=== PATIENT | female | born 1960 | race Caucasian/White ===

== ENCOUNTER 2017-03-24 23:02 | Inpatient (IN) | payer BC, MEDICAID ==
--- NOTE | 2017-03-24 23:29 | ED PDOC ---
HPI: Hypertension/Hypotension Time Seen by Provider: 03/24/17 23:16 Chief Complaint (Nursing): Dizziness/Lightheaded History Per: Patient Onset/Duration Of Symptoms: Days (1) Associated Symptoms: Headache Severity: Moderate Pain Scale Rating Of: 1 Additional Complaint(s): Checked BP at home due to headache and sensation of pressure in head since earlier tonight. Found BP to be elevated 176/106. Denies chest pain or palpitations Past Medical History Vital Signs: Last Vital Signs Temp 98.4 F 03/24/17 23:19 Pulse 100 H 03/24/17 23:19 Resp 18 03/24/17 23:19 BP 163/105 H 03/24/17 23:19 Pulse Ox 100 03/24/17 23:19 - Medical History PMH: HTN - Family History Family History: States: Unknown Family Hx - Allergies Allergies/Adverse Reactions: Allergies Allergy/AdvReac Type Severity Reaction Status Date / Time No Known Allergies Allergy Unverified 03/20/14 09:49 Review of Systems ROS Statement: Except As Marked, All Systems Reviewed And Found Negative Neurological: Positive for: Headache Physical Exam - Reviewed Nursing Documentation Reviewed: Yes Vital Signs Reviewed: Yes - Physical Exam Appears: Positive for: Non-toxic, No Acute Distress Head Exam: Positive for: ATRAUMATIC, NORMAL INSPECTION, NORMOCEPHALIC Skin: Positive for: Normal Color, Warm, DRY Eye Exam: Positive for: EOMI, Normal appearance, PERRL ENT: Positive for: Normal ENT Inspection Neck: Positive for: Normal, Painless ROM Cardiovascular/Chest: Positive for: Regular Rate, Rhythm Respiratory: Positive for: CNT, Normal Breath Sounds Gastrointestinal/Abdominal: Positive for: Normal Exam, Bowel Sounds, Soft Back: Positive for: Normal Inspection Extremity: Positive for: Normal ROM Neurologic/Psych: Positive for: Alert, Oriented. Negative for: Motor/Sensory Deficits - ECG O2 Sat by Pulse Oximetry: 100 Disposition - Clinical Impression Clinical Impression: Hypertension, Abnormal EKG - Patient ED Disposition Is Patient to be Admitted: Yes - Disposition Referrals: Rao Yeager MD [Primary Care Provider] - Disposition Time: 23:40 Condition: FAIR Forms: [facility] ([place]ian) - Pt Status Changed To: Hospital Disposition Of: Observation - POA Present On Arrival: None
[2017-03-24 23:51] LABS: BASO # 0.1 K/uL (0.0-0.2); BASO % 1.3 % (0.0-2.0); EOS # 0.1 K/uL (0.0-0.7); LYMPH # 2.8 K/uL (1.0-4.3); LYMPH % 37.3 % (20.0-40.0); MEAN CELL VOLUME 90.8 fl (81.0-99.0); MEAN CORPUSCULAR HEMOGLOBIN 30.3 pg (27.0-31.0); MEAN CORPUSCULAR HGB CONC 33.4 g/dL (33.0-37.0); MEAN PLATELET VOLUME 8.1 fl (7.2-11.7); MONO # 0.6 K/uL (0.0-0.8); MONO % 8.5 % (0.0-10.0); NEUT # 3.9 K/uL (1.8-7.0); NEUT % 51.9 % (50.0-75.0); RED CELL DISTRIBUTION WIDTH 12.6 % (11.5-14.5); WHITE BLOOD COUNT 7.4 K/uL (4.8-10.8)
[2017-03-25 00:04] LABS: ALB/GLOB RATIO 1.4 (1.0-2.1); ALKALINE PHOSPHATASE 89 U/L (38-126); ALT/SGPT 62 U/L (9-52); AST/SGOT 37 U/L (14-36); BILIRUBIN,TOTAL 0.3 mg/dl (0.2-1.3); BLOOD UREA NITROGEN 22 mg/dl (7-17); CALCIUM 9.6 mg/dL (8.4-10.2); CARBON DIOXIDE 25 mmol/L (22-30); CHLORIDE 103 mmol/L (98-107); GFR AFRICAN-AMERICAN > 60; GLUCOSE,RANDOM 127 mg/dL (65-105); POTASSIUM 3.2 MMOL/L (3.6-5.0); SODIUM 142 mmol/l (132-148); TOTAL PROTEIN 7.9 G/DL (6.3-8.2)
[2017-03-25] MEDS ORDERED: Potassium Chloride 20 mEq ER Tab PO STA (00:35)
[2017-03-25] MEDS ORDERED: Potassium Chloride 20 mEq ER Tab PO ONE (00:55)
[2017-03-25 06:40] LABS: RBC URINE 2 /hpf (0-3); URINE BILIRUBIN NEGATIVE (NEGATIVE); URINE BLOOD NEGATIVE (NEGATIVE); URINE COLOR STRAW (YELLOW); URINE GLUCOSE (UA) NEG (Normal); URINE KETONE NEGATIVE (NEGATIVE); URINE LEUKOCYTE ESTERASE SMALL Leu/uL (Negative); URINE PROTEIN NEGATIVE (NEGATIVE); URINE UROBILINOGEN 0.2-1.0 mg/dL (0.2-1.0); WBC URINE 4 /hpf (0-5)
[2017-03-25 07:32] LABS: HEMATOCRIT 39.8 % (34.0-47.0); MEAN CELL VOLUME 90.9 fl (81.0-99.0); MEAN CORPUSCULAR HEMOGLOBIN 30.8 pg (27.0-31.0); MEAN CORPUSCULAR HGB CONC 33.9 g/dL (33.0-37.0); RED CELL DISTRIBUTION WIDTH 12.9 % (11.5-14.5); WHITE BLOOD COUNT 6.9 K/uL (4.8-10.8)
[2017-03-25 07:48] LABS: ALB/GLOB RATIO 1.4 (1.0-2.1); ALKALINE PHOSPHATASE 79 U/L (38-126); ALT/SGPT 54 U/L (9-52); AST/SGOT 36 U/L (14-36); BILIRUBIN,TOTAL 0.5 mg/dl (0.2-1.3); BLOOD UREA NITROGEN 16 mg/dl (7-17); CALCIUM 9.5 mg/dL (8.4-10.2); CARBON DIOXIDE 26 mmol/L (22-30); CHLORIDE 107 mmol/L (98-107); CHOLESTEROL 188 mg/dL (0-199); GFR AFRICAN-AMERICAN > 60; GLUCOSE,RANDOM 110 mg/dL (65-105); SODIUM 144 mmol/l (132-148); TOTAL PROTEIN 7.8 G/DL (6.3-8.2)
[2017-03-25 08:05] LABS: T4 8.67 ug/dl (5.5-11.0)
[2017-03-25 08:19] LABS: THYROID STIMULATING HORMONE 3.53 mIU/ML (0.46-4.68)
[2017-03-25] MEDS: Enoxaparin 40 mg Syringe SC SCH (08:58)
--- NOTE | 2017-03-25 09:08 | CARD ---
APPROVED REPORT EKG Measurement Heart [id number] <Conclusion> Normal sinus rhythm Incomplete right bundle branch block T wave abnormality, consider anterior ischemia Prolonged QT Abnormal ECG
--- NOTE | 2017-03-25 09:38 | RAD ---
HISTORY: Abnormal EKG COMPARISON: No prior. TECHNIQUE: Chest PA and lateral FINDINGS: LUNGS: No acute infiltrates or effusions. PLEURA: No significant pleural effusion identified. No pneumothorax apparent. CARDIOVASCULAR: Normal. OSSEOUS STRUCTURES: Of very minor multilevel degenerative spondylosis of the thoracic spine. 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 VISUALIZED UPPER ABDOMEN: Normal. OTHER FINDINGS: None. IMPRESSION: No acute infiltrates
--- NOTE | 2017-03-25 11:01 | CT ---
PROCEDURE: CT scan of the brain dated 03/24/2017 HISTORY: r/o bleed COMPARISON: No prior study available comparison. TECHNIQUE: Axial computed tomography images were obtained through the head/brain without intravenous contrast. Radiation dose: Total exam DLP = 857.64 mGy-cm. This CT exam was performed using one or more of the following dose reduction techniques: Automated exposure control, adjustment of the mA and/or kV according to patient size, and/or use of iterative reconstruction technique. FINDINGS: HEMORRHAGE: No acute parenchymal, subarachnoid or extra-axial hemorrhage. . BRAIN: No evidence of large acute infarct. No significant chronic white matter ischemic changes. Minor vascular calcifications both carotid siphons VENTRICLES: No obstructive hydrocephalus. CALVARIUM: Unremarkable. PARANASAL SINUSES: Minimal mucosal thickening seen within a few ethmoid air cells. MASTOID AIR CELLS: Unremarkable as visualized. No inflammatory changes. OTHER FINDINGS: None. IMPRESSION: No acute intracranial hemorrhage.
--- NOTE | 2017-03-25 14:09 | CT ---
PROCEDURE: CT scan cervical spine 03/25/2017 HISTORY: <radiculopathy , htn> COMPARISON: No prior study available for comparison cyst TECHNIQUE: Axial computed tomography images were obtained of the cervical spine without the use of intravenous contrast. Coronal and sagittal reformatted images were created and reviewed. Radiation dose: Total exam DLP = 450.53 mGy-cm. This CT exam was performed using one or more of the following dose reduction techniques: Automated exposure control, adjustment of the mA and/or kV according to patient size, and/or use of iterative reconstruction technique. FINDINGS: VERTEBRAE: Current study reveals no acute compression fractures nor retropulsed fragments. Minor chronic anterior stature loss of the C5 segment felt to be degenerative in origin. Remaining vertebral bodies otherwise exhibit normal stature. . There is mild kyphotic angulation deformity centered at the C5-C6 level with straightening of the normal cervical lordosis above this level. Vertebral bodies and facets otherwise normally aligned. DISCS/SPINAL CANAL/NEURAL FORAMINA: At the C5-C6 level, there is disc space narrowing with endplate eburnation and shallow bulge of the posterior annulus. The facet joints are slightly hypertrophic. Minimal degenerative squaring of the uncovertebral joint. Central canal and exit foramina are adequate. The remaining levels exhibit relatively adequate disc height. No disc herniation or significant disc bulge. The overall central canal and exit foramina appear adequate. PARASPINAL SOFT TISSUES: Prevertebral and posterior paraspinal soft tissues unremarkable OTHER FINDINGS: Minimal biapical pleural thickening. No evidence of apical pneumothorax. IMPRESSION: Minor chronic anterior stature loss C5 segment felt to be degenerative in origin. In addition, there is mild kyphotic angulation deformity centered at C5-C6 level with straightening of the normal cervical lordosis above this level. Minor degenerative spondylosis C5-C6 level with no evidence of significant central canal or foraminal stenosis at this level. No evidence of canal nor foraminal stenosis at the remaining levels.
--- NOTE | 2017-03-25 14:56 | CP.PCM.HP ---
History of Present Illness - History of Present Illness History of Present Illness: CC: Dizziness/lightheaded. 56 y/o F, came to [facility] on 03/24/17 due to dizziness associated to lightheaded, sensation of pressured in posterior neck area radiated to occipital area on DOA with no relief. Worsening symptoms: BP 177/105 at home x 3. Abnormal EKG in ER. As per Pt; About 5:30 pm DOA, when symptoms started her BP was 120/80 but episodes subsides, there after, about 9 pm start feeling the same sensations but this time BP was increased to 177/105 prompting ER visit, there after Pt was admitted. Pt has Hx of BP x 4 years, initially Tx with Metoprolol and there after switched to Losartan and Chlorothiazide, Pt mentioned, she had EKG, Echo done 2 yrs ago and was told to be OK. Also in May 2016 Pt had work compensation, she developed L-S pain while at work Tx with epidural block, radiated to lower extremities and restricted to light duty work. Pt denied: Fever, chills, n/v/d, abdominal pain, CP,palpitations, SOB, cough, syncope, numbness, sick contact, recent travel. PMHx: HTN, High Cholesterol using OTC medication, Lumbago. CXR shows: No acute infiltrate. Head CT: No acute intracranial hemorrhage. Present on Admission - Present on Admission Any Indicators Present on Admission: No Review of Systems - Constitutional Constitutional: Other (negative) - EENT Eyes: Other (negative) Ears: Other (negative) Nose/Mouth/Throat: Other (negative) - Cardiovascular Cardiovascular: Lightheadedness, Other (negative) - Respiratory Respiratory: Other (negqt) - Gastrointestinal Gastrointestinal: Other (negative) - Genitourinary Genitourinary: Other (negative) - Musculoskeletal Musculoskeletal: Neck Pain (posterior neck area) - Integumentary Integumentary: Other (negative) - Neurological Neurological: Dizziness - Psychiatric Psychiatric: Other (negative) - Endocrine Endocrine: Other (negative) - Hematologic/Lymphatic Hematologic: Other (negative) Past Patient History - Past Medical History & Family History Past Medical History?: Yes Pertinent Family History: Strong for CAD, LA, CHF, High Cholesterol. Brother from heart attack. - Past Social History Smoking Status: Never Smoked Alcohol: None Drugs: Denies Home Situation {Lives}: With Family - CARDIAC Hx Cardiac Disorders: Yes (HTN) Hx Hypertension: Yes - PULMONARY Hx Respiratory Disorders: No - NEUROLOGICAL Hx Neurological Disorder: No - HEENT Hx HEENT Problems: No - RENAL Hx Chronic Kidney Disease: No - ENDOCRINE/METABOLIC Hx Endocrine Disorders: No - HEMATOLOGICAL/ONCOLOGICAL Hx Blood Disorders: No Hx AIDS: No Hx Human Immunodeficiency Virus (HIV): No - INTEGUMENTARY Hx Dermatological Problems: No - MUSCULOSKELETAL/RHEUMATOLOGICAL Hx Musculoskeletal Disorders: Yes Hx Back Pain: Yes Hx Falls: No - GASTROINTESTINAL Hx Gastrointestinal Disorders: No - GENITOURINARY/GYNECOLOGICAL Hx Genitourinary Disorders: No - PSYCHIATRIC Hx Psychophysiologic Disorder: No Hx Substance Use: No - SURGICAL HISTORY Hx Surgeries: No - ANESTHESIA Hx Anesthesia: Yes Hx Anesthesia Reactions: No Hx Malignant Hyperthermia: No Has any member of the family had a problem w/ anesthesia?: No Meds Home Medications: Home Medication List Medication Instructions Recorded Confirmed Type Losartan/Hydrochlorothiazide 1 each PO DAILY #30 tablet 03/25/17 Rx [Hyzaar 100-25 Tablet] Allergies/Adverse Reactions: Allergies Allergy/AdvReac Type Severity Reaction Status Date / Time No Known Allergies Allergy Unverified 03/20/14 09:49 Physical Exam - Constitutional Appears: No Acute Distress - Head Exam Head Exam: NORMAL INSPECTION - Eye Exam Eye Exam: PERRL - ENT Exam ENT Exam: Normal Oropharynx - Neck Exam Neck exam: Positive for: Normal Inspection - Respiratory Exam Respiratory Exam: NORMAL BREATHING PATTERN - Cardiovascular Exam Cardiovascular Exam: REGULAR RHYTHM - GI/Abdominal Exam GI & Abdominal Exam: Normal Bowel Sounds, Soft - Extremities Exam Extremities exam: Positive for: normal inspection - Back Exam Back exam: NORMAL INSPECTION - Neurological Exam Neurological exam: Alert, Oriented x3 Additional comments: No motor sensory deficit. - Psychiatric Exam Psychiatric exam: Normal Mood - Skin Skin Exam: Warm Results - Vital Signs Recent Vital Signs: Last Vital Signs Temp 98.6 F 03/25/17 12:11 Pulse 72 03/25/17 13:15 Resp 20 03/25/17 12:11 BP 144/88 03/25/17 13:15 Pulse Ox 99 03/25/17 12:11 reviewed Brissa - Labs Result Diagrams: 03/26/17 06:00 03/26/17 06:00 Labs: Laboratory Results - last 24 hr 0803/24/17 03/25/17 23:48 23:48 06:30 WBC 7.4 RBC 4.41 Hgb 13.4 Hct 40.0 MCV 90.8 MCH 30.3 MCHC 33.4 RDW 12.6 Plt Count 215 MPV 8.1 Neut % (Auto) 51.9 Lymph % (Auto) 37.3 Ransom % (Auto) 8.5 Eos % (Auto) 1.0 Baso % (Auto) 1.3 Neut # 3.9 Lymph # 2.8 Ransom # 0.6 Eos # 0.1 Baso # 0.1 Sodium 142 Potassium 3.2 L Chloride 103 Carbon Dioxide 25 Anion Gap 17 BUN 22 H Creatinine 1.0 Est GFR ( Amer) > 60 Est GFR (Non-Af Amer) 57 Random Glucose 127 H Calcium 9.6 Total Bilirubin 0.3 AST 37 H ALT 62 H Alkaline Phosphatase 89 Troponin I < 0.0120 Total Protein 7.9 Albumin 4.7 Globulin 3.3 Albumin/Globulin Ratio 1.4 Triglycerides Cholesterol LDL Cholesterol Direct HDL Cholesterol Thyroxine (T4) TSH 3rd Generation Urine Color Straw Urine Clarity Clear Urine pH 8.0 Ur Specific Skipwith 1.008 Urine Protein Negative Urine Glucose (UA) Neg Urine Ketones Negative Urine Blood Negative Urine Nitrate Negative Urine Bilirubin Negative Urine Urobilinogen 0.2-1.0 Ur Leukocyte Esterase Small Urine RBC (Auto) 2 Urine Microscopic WBC 4 Ur Squamous Epith Cells < 1 03/25/17 03/25/17 03/25/17 07:20 07:20 08:28 WBC 6.9 RBC 4.38 Hgb 13.5 Hct 39.8 MCV 90.9 MCH 30.8 MCHC 33.9 RDW 12.9 Plt Count 228 MPV Neut % (Auto) Lymph % (Auto) Ransom % (Auto) Eos % (Auto) Baso % (Auto) Neut # Lymph # Ransom # Eos # Baso # Sodium 144 Potassium 4.0 Chloride 107 Carbon Dioxide 26 Anion Gap 15 BUN 16 Creatinine 0.7 Est GFR ( Amer) > 60 Est GFR (Non-Af Amer) > 60 Random Glucose 110 H Calcium 9.5 Total Bilirubin 0.5 AST 36 ALT 54 H Alkaline Phosphatase 79 Troponin I < 0.0120 Total Protein 7.8 Albumin 4.6 Globulin 3.2 Albumin/Globulin Ratio 1.4 Triglycerides 67 Cholesterol 188 LDL Cholesterol Direct 120 HDL Cholesterol 47 Thyroxine (T4) 8.67 TSH 3rd Generation 3.53 Urine Color Urine Clarity Urine pH Ur Specific Skipwith Urine Protein Urine Glucose (UA) Urine Ketones Urine Blood Urine Nitrate Urine Bilirubin Urine Urobilinogen Ur Leukocyte Esterase Urine RBC (Auto) Urine Microscopic WBC Ur Squamous Epith Cells reviewed J.P. - Imaging and Cardiology Chest x-ray Status: Report reviewed by me (Anjali.) CT scan - head Status: Report reviewed by me (Anjali.) Assessment & Plan (1) Uncontrolled hypertension Status: Acute - Assessment and Plan (Free Text) Plan: Continue Hydrodiuril, Cozaar, Lovenox, Cardiology consult. - Date & Time Date: 03/25/17 Time: 10:30
[2017-03-25 15:34] LABS: PARTIAL THROMBOPLASTIN TIME 43.1 Seconds (25.6-37.1)
--- NOTE | 2017-03-25 19:37 | CARD ---
APPROVED REPORT EXAM: Two-dimensional and M-mode echocardiogram with Doppler and color Doppler. Other Information Quality : GoodRhythm : NSR INDICATION Hypertension/HCVD 2D DIMENSIONS IVSd0.81 (0.7-1.1cm)LVDd5.18 (3.9-5.9cm) LVOT Diameter1.81 (1.8-2.4cm)PWd0.63 (0.7-1.1cm) IVSs1.00 (0.8-1.2cm)LVDs3.24 (2.5-4.0cm) FS (%) 37.6 %PWs0.96 (0.8-1.2cm) M-Mode DIMENSIONS Left Atrium (MM)3.85 (2.5-4.0cm)IVSd0.91 (0.7-1.1cm) Aortic Root3.32 (2.2-3.7cm)LVDd5.00 (4.0-5.6cm) Aortic Cusp Exc.1.97 (1.5-2.0cm)PWd1.18 (0.7-1.1cm) IVSs1.47 cmFS (%) 41 % LVDs2.97 (2.0-3.8cm)PWs1.24 cm Mitral Valve MV E Wxfaatzn52.7cm/sMV DECEL [id number] A Xdnwxqhs07.1cm/s MV EZV74efS/A ratio0.9MVA (PHT)2.88cm2 TDI Lateral E' Peak V16.05cm/sMedial E' Peak V8.80cm/sE/Lateral E'3.5 E/Medial E'6.3 Pulmonary Valve PV Peak Usucqcwr168.6cm/s LEFT VENTRICLE The left ventricle is normal size. There is normal left ventricular wall thickness. The left ventricular function is normal. The left ventricular ejection fraction is 55% There is normal LV segmental wall motion. The left ventricular diastolic function is normal. No left ventricle thrombus noted on this study. There is no ventricular septal defect visualized. There is no left ventricular aneurysm. There is no mass noted in the left ventricle. RIGHT VENTRICLE The right ventricle is normal size. There is normal right ventricular wall thickness. The right ventricular systolic function is normal. ATRIA The left atrium size is normal. The right atrium size is normal. The interatrial septum is intact with no evidence for an atrial septal defect. AORTIC VALVE The aortic valve is normal in structure and function. No aortic regurgitation is present. There is no aortic valvular stenosis. There is no aortic valvular vegetation. MITRAL VALVE The mitral valve is normal in structure and function. There is no evidence of mitral valve prolapse. There is no mitral valve stenosis. Mitral regurgitation is mild. TRICUSPID VALVE The tricuspid valve is normal in structure and function. There is no tricuspid valve regurgitation noted. There is no tricuspid valve prolapse or vegetation. There is no tricuspid valve stenosis. PULMONIC VALVE The pulmonary valve is normal in structure and function. There is no pulmonic valvular regurgitation. There is no pulmonic valvular stenosis. GREAT VESSELS The aortic root is normal in size. The ascending aorta is normal in size. The IVC is normal in size and collapses >50% with inspiration. PERICARDIAL EFFUSION The pericardium appears normal. There is no pleural effusion. <Conclusion> Normal LV Systolic Function Mild Mitral Regurgitation
--- NOTE | 2017-03-26 01:58 | CON ---
DATE: CARDIOLOGY CONSULT REASON FOR CONSULTATION: Uncontrolled hypertension as well as bilateral shoulder discomfort. The history was taken via rooms director. HISTORY OF PRESENT ILLNESS: The patient is a 56-year-old female who has history of hypertension, presented because of headache and hot feeling associated with bilateral shoulder pain going up to the neck and head. The patient is unaware of any prior cardiac other than history of hypertension. She denies chest pain or shortness of breath. SOCIAL HISTORY: The patient is . She is housewife. She is a nonsmoker and nondrinker. FAMILY HISTORY: The patient's parents have hypertension. MEDICATIONS: Home medications include Cozaar 10 mg once a day. Current hospital medications include Cozaar 100 mg once a day, hydrochlorothiazide 25 mg once a day, Lovenox 40 mg subcutaneously once a day. REVIEW OF SYSTEMS: No nausea or vomiting. No fever or chills. PHYSICAL EXAMINATION: GENERAL: The patient is middle-aged female, who does not appear to be in any acute discharge. VITAL SIGNS: Blood pressure 144/88, heart rate 72, temperature 98.6,and respirations 20. HEENT: Normocephalic. NECK: No JVD. CHEST: Clear. HEART: S1 and S2 is regular. ABDOMEN: Soft. EXTREMITIES: No edema. LABORATORY DATA: CBC, WBC 6.9, hemoglobin 13.5, hematocrit 39.8, and platelets count 128,000. Sodium 144, potassium 4.0, chloride 107, CO2 of 26, glucose 110, BUN 16, and creatinine 0.7. Yesterday's potassium was 3.2. Two sets of troponins are negative. Lipid profile was within normal limits. TSH level as well as T4 level are within normal limits. ASSESSMENT: 1. Hypertension, which is currently without control. 2. Improved hypokalemia. 3. Rule out cervical radiculopathy. RECOMMENDATIONS: Continue current Cozaar 10 mg once a day, hydrochlorothiazide 25 mg daily, Lovenox 40 mg daily, start K-Dur 20 mEq ordered daily. I reviewed noncontrast head CT scan on admission which was negative for acute findings. I will follow cervical spine CT scan and echocardiographic study performed today. Obtain PT, PTT and serum D-dimer. Pankaj Barrera MD
[2017-03-26 07:49] LABS: HEMATOCRIT 44.1 % (34.0-47.0); MEAN CELL VOLUME 91.3 fl (81.0-99.0); MEAN CORPUSCULAR HEMOGLOBIN 31.1 pg (27.0-31.0); RED CELL DISTRIBUTION WIDTH 13.5 % (11.5-14.5); WHITE BLOOD COUNT 7.1 K/uL (4.8-10.8)
[2017-03-26 08:57] LABS: ALB/GLOB RATIO 1.4 (1.0-2.1); ALKALINE PHOSPHATASE 79 U/L (38-126); ALT/SGPT 60 U/L (9-52); AST/SGOT 44 U/L (14-36); BILIRUBIN,TOTAL 0.8 mg/dl (0.2-1.3); BLOOD UREA NITROGEN 20 mg/dl (7-17); CALCIUM 9.8 mg/dL (8.4-10.2); CARBON DIOXIDE 27 mmol/L (22-30); CHLORIDE 102 mmol/L (98-107); CHOLESTEROL 220 mg/dL (0-199); GFR AFRICAN-AMERICAN > 60; GLUCOSE,RANDOM 99 mg/dL (65-105); POTASSIUM 3.9 MMOL/L (3.6-5.0); SODIUM 141 mmol/l (132-148); TOTAL PROTEIN 8.7 G/DL (6.3-8.2)
[2017-03-26 09:13] LABS: T4 8.82 ug/dl (5.5-11.0)
[2017-03-26] MEDS: Enoxaparin 40 mg Syringe SC SCH ×2 (09:18→09:24)
[2017-03-26 09:26] LABS: THYROID STIMULATING HORMONE 3.49 mIU/ML (0.46-4.68)
--- NOTE | 2017-03-26 15:46 | PN ---
SUBJECTIVE: No chest pain, no reported ventricular arrhythmia. PHYSICAL EXAMINATION VITAL SIGNS: Blood pressure 106/69, heart rate 67, temperature 98.6, respirations 18. HEENT: Normocephalic. CHEST: Clear. HEART: S1, S2, regular. EXTREMITIES: No edema. LABORATORY DATA: Hemoglobin, hematocrit, white count and platelet count are within normal limits. SMA-7 is within normal limits except for BUN of 20. AST and ALT are slightly elevated at 44 and 60 respectively. Three sets of troponins are negative. Total cholesterol is elevated to 128. LDL cholesterol is elevated at 143. D-dimer is within normal limits. Official echocardiography study report, normal left ventricular systolic function, mild mitral insufficiency. ASSESSMENT: 1. Chest pain, myocardial infarction is ruled out. 2. Hypertension. 3. Mildly elevated liver enzymes. 4. Hyperlipidemia. RECOMMENDATIONS: Continue Cozaar at 100 mg once a day, hydrochlorothiazide 25 mg once a day, Lovenox 40 mg subcutaneous once a day, start Lipitor 20 mg once a day. Today's EKG revealed sinus rhythm with incomplete right bundle-branch block. Consider an outpatient stress test. Pankaj Barrera MD
--- NOTE | 2017-03-26 16:46 | CP.PCM.PN ---
Subjective - Date & Time of Evaluation Date of Evaluation: 03/26/17 Time of Evaluation: 15:00 - Subjective Subjective: F/U HTN. Vital signs normal, no chest pain, no A/D, no c/o. Objective - Vital Signs/Intake and Output Vital Signs (last 24 hours): Temp Pulse Resp BP Pulse Ox 98.6 F 67 18 106/69 97 03/26/17 12:45 03/26/17 12:45 03/26/17 12:45 03/26/17 12:45 03/26/17 12:45 - Medications Medications: Current Medications Atorvastatin Calcium (Lipitor) 10 mg PO DAILY [facility] Last Admin: 03/26/17 14:05 Dose: 10 mg Enoxaparin Sodium (Lovenox) 40 mg SC DAILY [facility] PRN Reason: Protocol Last Admin: 03/26/17 09:24 Dose: Not Given Hydrochlorothiazide (Hydrodiuril) 25 mg PO DAILY [facility] Last Admin: 03/26/17 09:21 Dose: 25 mg Losartan Potassium (Cozaar) 100 mg PO DAILY [facility] Last Admin: 03/26/17 09:19 Dose: Not Given - Labs Labs: 03/26/17 06:00 03/26/17 06:00 PT 12.3 Seconds (9.8-13.1) 03/25/17 14:34 INR 1.2 (0.9-1.2) 03/25/17 14:34 APTT 43.1 Seconds (25.6-37.1) H 03/25/17 14:34 - Constitutional Appears: No Acute Distress - Head Exam Head Exam: NORMAL INSPECTION - Eye Exam Eye Exam: PERRL - ENT Exam ENT Exam: Normal Exam - Neck Exam Neck Exam: Normal Inspection - Respiratory Exam Respiratory Exam: NORMAL BREATHING PATTERN - Cardiovascular Exam Cardiovascular Exam: REGULAR RHYTHM - GI/Abdominal Exam GI & Abdominal Exam: Soft, Normal Bowel Sounds - Extremities Exam Extremities Exam: Normal Inspection - Back Exam Back Exam: NORMAL INSPECTION - Neurological Exam Neurological Exam: Alert, Awake, Oriented x3 - Psychiatric Exam Psychiatric exam: Normal Mood - Skin Skin Exam: Warm Assessment and Plan (1) Uncontrolled hypertension Status: Acute - Assessment and Plan (Free Text) Plan: Cardiology reviewed Echo , normal , improved stable to be discharged , recommended STT out Patient due to EKG ( see report) , call PMD Dr Yeager f/u appt next week , call her [employer] for f/u appt next week , see inst/med sheet.
[2017-03-27 04:47] VITALS: RESP 18
[2017-03-27] MEDS: Enoxaparin 40 mg Syringe SC SCH (08:52)
[2017-03-27 12:23] VITALS: BP 109/72; PULSE 77; TEMP 98.2; O2SAT 97
--- NOTE | 2017-03-28 11:09 | CARD ---
APPROVED REPORT EKG Measurement Heart [id number] [place] [id number] <Conclusion> Normal sinus rhythm Incomplete right bundle branch block Prolonged QT Abnormal ECG
== END 2017-03-27 13:15 | disposition home or self-care (01) | DRG 305 ==
LOC: H.ER 23:02 → H.ERHOLD 23:37 → H.TEL 03-25 01:55 → OBSVTOIN 03-25 23:11
PROVIDERS: ADMIT Internal Medicine Pulmonary Disease; ATTEND Internal Medicine Pulmonary Disease
DX: I10 Essential (primary) hypertension (principal); E78.5 Hyperlipidemia, unspecified; E78.00 Pure hypercholesterolemia, unspecified; E87.6 Hypokalemia; I25.10 Atherosclerotic heart disease of native coronary artery without angina pectoris; R79.89 Other specified abnormal findings of blood chemistry